=== PATIENT | female | born 1950 | race Caucasian/White ===

== ENCOUNTER 2016-12-11 12:08 | Emergency (ER) | payer MEDICARE, MEDICAID ==
[~2016-12-11] VITALS: Ht 157.5 cm; Wt 79.4 kg
[~2016-12-11 12:08] MED LIST: HYOS0.1273 PO; PANT40TA2 PO
[2016-12-11] MEDS ORDERED: OMEP20TA5 PO (12:19)
[2016-12-11 13:06] LABS: BILIRUBIN,DIRECT 0.1 mg/dL (0.0-0.2); BILIRUBIN,TOTAL 0.5 mg/dL (0.2-1.0); CREATININE 0.5 mg/dL (0.6-1.3); POTASSIUM 3.5 mmol/L (3.5-5.1)
[2016-12-11 13:09] LABS: BASOPHILS % (AUTO) 0.3 % (0.0-2.0); EOSINOPHILS # (AUTO) 0.1 K/uL (0.0-0.7); EOSINOPHILS % (AUTO) 0.5 % (0.0-7.0); HEMATOCRIT 41.5 % (31.2-41.9); HEMOGLOBIN 14.3 g/dL (10.9-14.3); LYMPHOCYTES # (AUTO) 1.3 K/uL (20.0-40.0); LYMPHOCYTES % (AUTO) 10.9 % (20.5-51.5); MEAN CORPUSCULAR HEMOGLOBIN 30.6 uug (24.7-32.8); MEAN CORPUSCULAR HGB CONC 34 g/dL (32.3-35.6); MEAN CORPUSCULAR VOLUME 88.9 fL (75.5-95.3); MONOCYTES # (AUTO) 0.7 K/uL (2.0-10.0); MONOCYTES % (AUTO) 5.7 % (0.0-11.0); NEUTROPHILS # (AUTO) 10.1 K/uL (1.8-8.9); NEUTROPHILS % (AUTO) 82.6 % (38.5-71.5); PLATELET COUNT (AUTO) 191 K/uL (179-408); RED BLOOD CELL COUNT(AUTO) 4.67 MIL/uL (3.63-4.92); WHITE BLOOD COUNT (AUTO) 12.2 K/uL (3.8-11.8)
[2016-12-11 13:21] LABS: *BILIRUBIN,URIN NEGATIVE (NEGATIVE); *BLOOD, URINE Trace-lysed (NEGATIVE); *CLARITY,URINE CLEAR (CLEAR); *COLOR,URINE YELLOW (YELLOW); *KETONES,URINE NEGATIVE (NEGATIVE); *PROTEIN,URINE NEGATIVE (NEGATIVE); *UROBILINOGEN,URINE 0.2 E.U./dl (NORMAL); LEUKOCYTE ESTERASE ,URINE TRACE (NEGATIVE); NITRITE, URINE NEGATIVE (NEGATIVE); PH,URINE 5.5 (5.0-8.0); UGLUCOSE NEGATIVE (NEGATIVE)
--- NOTE | 2016-12-11 13:29 | NUR ---
Patient is resting comfortably in bed with eyes closed, some relief expressed, pending results & disposition
[2016-12-11 13:49] LABS: BACTERIA,URINE NONE SEEN /HPF (NONE SEEN); MUCUS,URINE FEW /LPF (0-FEW); RBC,URINE 0-3 /HPF (0-3); SQUAMOUS EPITHELIAL CELL,UR FEW /HPF (NONE SEEN)
[2016-12-11 15:07] VITALS: BP 133/77
--- NOTE | 2016-12-11 15:08 | NUR ---
Patient discharged to home in stable conditon. Written and verbal after care instructions given. Patient and son verbalizes understanding of instructions.
== END 2016-12-11 15:09 | disposition home or self-care (01) ==
LOC: ER 12:08
DX: K85.90 Acute pancreatitis without necrosis or infection, unspecified (principal); Z90.49 Acquired absence of other specified parts of digestive tract; I10 Essential (primary) hypertension; Z90.710 Acquired absence of both cervix and uterus
CPT/HCPCS: 36415; 71010; 74176; 80048; 80076; 81001; 83690; 85025; 85730; 87086; 93005; 96361; 96374; 96375; 99285; A4663; C9113; J1170; J2405; J7030

== ENCOUNTER 2016-12-17 11:32 | Inpatient (IN) | payer MEDICARE, MEDICAID ==
[~2016-12-17] VITALS: Ht 157.5 cm; Wt 77.1 kg
[~2016-12-17 11:32] MED LIST changes: +OMEP20TA5 PO
[2016-12-17] MEDS ORDERED: METOCLOPRAMIDE HCL 10 MG/2 ML VIAL IV ONE (12:15)
[2016-12-17] MEDS ORDERED: KETOROLAC TROMETHAMINE 15 MG INJ IV ONE (12:15)
[2016-12-17] MEDS ORDERED: IV NORMAL SALINE 1000 ML BAG IV ONE (12:15)
[2016-12-17 12:20] LABS: BASOPHILS # (AUTO) 0.1 K/uL (0.0-8.0); BASOPHILS % (AUTO) 0.7 % (0.0-2.0); EOSINOPHILS # (AUTO) 0.1 K/uL (0.0-0.7); EOSINOPHILS % (AUTO) 0.9 % (0.0-7.0); HEMATOCRIT 43.8 % (31.2-41.9); LYMPHOCYTES # (AUTO) 1.7 K/uL (20.0-40.0); MEAN CORPUSCULAR HEMOGLOBIN 30.8 uug (24.7-32.8); MEAN CORPUSCULAR HGB CONC 34 g/dL (32.3-35.6); MEAN CORPUSCULAR VOLUME 89.7 fL (75.5-95.3); MONOCYTES # (AUTO) 0.4 K/uL (2.0-10.0); MONOCYTES % (AUTO) 5.5 % (0.0-11.0); NEUTROPHILS # (AUTO) 5.7 K/uL (1.8-8.9); NEUTROPHILS % (AUTO) 71.9 % (38.5-71.5); PLATELET COUNT (AUTO) 208 K/uL (179-408); RED BLOOD CELL COUNT(AUTO) 4.88 MIL/uL (3.63-4.92); WHITE BLOOD COUNT (AUTO) 7.9 K/uL (3.8-11.8)
[2016-12-17 12:21] LABS: *BILIRUBIN,URIN NEGATIVE (NEGATIVE); *BLOOD, URINE NEGATIVE (NEGATIVE); *CLARITY,URINE CLEAR (CLEAR); *COLOR,URINE YELLOW (YELLOW); *KETONES,URINE NEGATIVE (NEGATIVE); *PROTEIN,URINE NEGATIVE (NEGATIVE); *UROBILINOGEN,URINE 0.2 E.U./dl (NORMAL); LEUKOCYTE ESTERASE ,URINE TRACE (NEGATIVE); NITRITE, URINE NEGATIVE (NEGATIVE); UGLUCOSE NEGATIVE (NEGATIVE)
[2016-12-17 12:23] LABS: CREATININE 0.6 mg/dL (0.6-1.3)
[2016-12-17] MEDS ORDERED: KETOROLAC TROMETHAMINE 15 MG INJ ONE (12:27)
[2016-12-17 12:28] LABS: BACTERIA,URINE NONE SEEN /HPF (NONE SEEN); BILIRUBIN,DIRECT 0.1 mg/dL (0.0-0.2); BILIRUBIN,TOTAL 0.5 mg/dL (0.2-1.0); RBC,URINE 0-3 /HPF (0-3); SQUAMOUS EPITHELIAL CELL,UR FEW /HPF (NONE SEEN); TOTAL PROTEIN, SERUM 8.2 g/dL (6.4-8.2); WBC,URINE 0-3 /HPF (0-3)
[2016-12-17] MEDS ORDERED: METOCLOPRAMIDE HCL 10 MG/2 ML VIAL ONE (12:28)
--- NOTE | 2016-12-17 13:15 | NUR ---
Dr Miller at bedside for re-eval. Pt states pain and nausea improved. Call placed to [facility] for admission.
--- NOTE | 2016-12-17 14:00 | NUR ---
Dr. Miller spoke with via telephone, SBAR report given to Rashida.
--- NOTE | 2016-12-17 14:16 | NUR ---
Pt trans to m/s floor, NAD noted.
[2016-12-17 14:44] VITALS: BP 122/53
[2016-12-17] MEDS ORDERED: ACETAMINOPHEN 325 MG TABLET PO PRN (14:45)
[2016-12-17] MEDS ORDERED: HYDROMORPHONE 1 MG/1 ML DISP.SYRIN IV PRN (14:45)
[2016-12-17] MEDS ORDERED: Z GUARD REMEDY PASTE 57 GM TUBE TOP PRN (14:45)
[2016-12-17] MEDS ORDERED: ONDANSETRON 4 MG/2 ML VIAL IV PRN (14:45)
--- NOTE | 2016-12-17 14:45 | NUR ---
66 year old female admitted to room 218 for abdominal pain in stable condition.pt is axox3,daughter is at bed side,orient the pt to room and surroundings,call light with in reach
[2016-12-17] MEDS ORDERED: HYDROMORPHONE 2 MG/1 ML DISP.SYRIN IV PRN (15:00)
[2016-12-17] MEDS: IV NS 1000 ML 1,000 ML IV PRN (15:14)
[2016-12-17 20:00] VITALS: BP 141/63
[2016-12-18 04:27] VITALS: BP 129/53
[2016-12-18] MEDS: IV NS 1000 ML 1,000 ML IV PRN ×2 (05:24→18:14)
[2016-12-18 07:25] LABS: EOSINOPHILS # (AUTO) 0.1 K/uL (0.0-0.7); EOSINOPHILS % (AUTO) 1.4 % (0.0-7.0); HEMATOCRIT 39.3 % (37-47); HEMOGLOBIN 13.1 G/DL (12.0-16.0); LYMPHOCYTES # (AUTO) 1.1 K/UL (0.8-4.8); LYMPHOCYTES % (AUTO) 17.6 % (20.5-51.5); MEAN CORPUSCULAR HEMOGLOBIN 30.1 UUG (27.0-31.0); MEAN CORPUSCULAR HGB CONC 33 g/dL (32.0-37.0); MEAN CORPUSCULAR VOLUME 90.4 FL (81.0-99.0); MONOCYTES # (AUTO) 0.5 K/UL (0.1-1.30); NEUTROPHILS # (AUTO) 4.8 K/UL (1.8-8.9); PLATELET COUNT (AUTO) 190 K/UL (150-450); RED BLOOD CELL COUNT(AUTO) 4.35 MIL/UL (4.2-5.4); WHITE BLOOD COUNT (AUTO) 6.5 K/UL (4.0-11.2)
[2016-12-18] MEDS: PANTOPRAZOLE SODIUM 40 MG TABLET.DR PO SCH (07:37)
[2016-12-18 07:43] LABS: BILIRUBIN,TOTAL 0.6 mg/dL (0.2-1.0); CREATININE 0.6 mg/dL (0.6-1.3); MAGNESIUM 1.9 mg/dL (1.8-2.4); PHOSPHOROUS 2.7 mg/dL (2.5-4.9); POTASSIUM 3.8 mmol/L (3.5-5.1)
[2016-12-18 07:47] LABS: THYROID STIMULATING HORMONE 1.744 mIU/mL (0.358-3.740)
--- NOTE | 2016-12-18 08:30 | NUR ---
RECEIVED PATIENT AWAKE ALERT AND ORIENTED DENIES PAIN OR DISCOMFORTS AT THIS TIME.REMAIN ON IVF ORDERED TO HER LEFT ANTECUBITAL WITH NO S/S OF INFILTERATION AT THIS TIME MADE COMFORTABLE AND WILL CONTINUE TO OBSERVE PATIENT.
[2016-12-18] MEDS ORDERED: DICYCLOMINE HCL 20 MG TABLET PO PRN (10:45)
[2016-12-18 11:57] VITALS: BP 115/47
--- NOTE | 2016-12-18 12:00 | NUR ---
ORDER NOTED TO DISCHARGE PATIENT TODAY PATIENT STATED WANTS TO GO TO A REHAB BUT THE SANITATION INSPECTOR CALLED THE ASSISTANT EDUCATION DIRECTOR AND SHE STATED THAT WHEN EVER THE PATIENT IS SENT TO THE LONG TERM HE ALWAYS LEAVES AMA AND THEY ARE NOT WILLING TO TAKE HIM AT THIS TIME.PATIENT AWARE AND HE WAS OFFERED A PENITENTIARY BUT HE STATED HE DOES NOT WANT TO GO TO THE PENITENTIARY AT THIS TIME. Addendum: 12/18/16 at 1349 by BARBI MILLER RN ERROR IN CHARTING PATIENT IS NOT DISCHARGED WRONG PATIENT.
[2016-12-18] MEDS: CEPHALEXIN MONOHYDRATE 250 MG CAPSULE PO SCH ×2 (13:14→21:23)
[2016-12-18 16:00] VITALS: BP 118/60
[2016-12-18 20:00] VITALS: BP 137/66
--- NOTE | 2016-12-18 20:00 | NUR ---
Received pt on bed alert, awake and oriented x4, [place] speaking. Family at bedside during this time. No acute distress noted. No complaints of pain or discomfort. Breathing even and unlabored with normal respirations. IV on LAC intact and patent. Vital signs stable. Call light within reach. All needs attended. Will continue to monitor.
[2016-12-19 04:49] VITALS: BP 107/59
[2016-12-19] MEDS: CEPHALEXIN MONOHYDRATE 250 MG CAPSULE PO SCH ×3 (06:26→22:02)
[2016-12-19] MEDS: PANTOPRAZOLE SODIUM 40 MG TABLET.DR PO SCH (06:26)
--- NOTE | 2016-12-19 06:39 | NUR ---
Patient complained of abdominal pain, bentyl given as ordered. Verbalization of relief was noted. However, daughter requested to call the docror. Tried to call assistant branch operations manager MD, still awaiting for response. Call light within reach. All needs attended.
[2016-12-19] MEDS: IV NS 1000 ML 1,000 ML IV PRN ×2 (07:55→22:04)
--- NOTE | 2016-12-19 08:30 | NUR ---
PATIENT STATED THAT HER PAIN CAME BACK MORE TOLERABLE NOW SINCE SHE TOOK THE MEDICATIONS EARLIER THIS AM REMAIN ON IVF ORDERED EATING HER B/FAST BUT STATED THAT SHE CAN ONLY EAT A LITTLE DUE TO THE PAIN.
--- NOTE | 2016-12-19 11:13 | NUR ---
PATIENT SEEN AND EXAMINED BY DR JABIER JARQUIN SPOKE WITH PATIENTS DAUGHTER AT LENGTH WITH NEW ORDERS.DR JARQUIN STATED THAT HE ORDERED PHYSICIAN CONSULT WITH DR JORDAN FOR A POSSIBLE COLONOSCOPY TOMORROW PATIENT AND FAMILY EXPRESSED UNDERSTANDING.
[2016-12-19 11:25] VITALS: BP 130/55
[2016-12-19] MEDS: SERTRALINE HCL 50 MG TABLET PO SCH (12:03)
[2016-12-19] MEDS: FAMOTIDINE 20 MG TABLET PO SCH ×2 (12:03→20:16)
[2016-12-19] MEDS: DICYCLOMINE HCL 20 MG/2 ML AMPUL IM SCH ×2 (12:06→17:45)
[2016-12-19 12:16] LABS: BILIRUBIN,DIRECT 0.1 mg/dL (0.0-0.2); BILIRUBIN,TOTAL 0.4 mg/dL (0.2-1.0); TOTAL PROTEIN, SERUM 7.3 g/dL (6.4-8.2)
[2016-12-19] MEDS ORDERED: GOLYTELY 4000 ML BOTTLE PO ONE (14:45)
[2016-12-19] MEDS ORDERED: BISACODYL 5 MG TABLET.DR PO ONE (14:45)
--- NOTE | 2016-12-19 15:02 | NUR ---
DR JORDAN HERE TO SEE PATIENT WITH NEW ORDERS PATIENT IS FOR EGD/COLONOSCOPY TOMORROW FAMILY AND PATIENT AWARE AND WILL OBTAIN CONSCENT.
[2016-12-19 15:53] VITALS: BP 121/76
--- NOTE | 2016-12-19 16:50 | NUR ---
PATIENT COMPLAINED OF NAUSEA MEDICATED WITH ZOFRAN ORDERED SHE IS STILL DRINKING THE GOLYTELY.
--- NOTE | 2016-12-19 18:21 | NUR ---
STILL CONTINUING TO DRINK THE PREP MOTED LIQUIDS STOOL BUT STILL WITH SEDIMENTS.
--- NOTE | 2016-12-19 19:30 | NUR ---
RECEIVED PATIENT FROM PREVIOUS SHIFT. PATIENT IN STABLE CONDITION, NO SIGNS OF DISTRESS. VITAL SIGNS WNL. PATIENT COMPLAINING OF ABD PAIN BUT DOES NOT WANT PAIN MEDICATION. NO FALL RISK. IV ACCESS NOTED, PATENT, INTACT. O2 NOT NEEDED. BED IN LOCKED POSITION. CALL-LIGHT WITHIN REACH. SAFETY AND COMFORT PROVIDED.
--- NOTE | 2016-12-19 20:00 | NUR ---
EDUCATED TO PATIENT AND THE IMPORTANCE OF DRINKING GO-LIGHTLY. VERBALIZED TO PATIENT AND ABOUT THE IMPORTANCE OF CLEAR LIQUID DIET, AND NPO STATUS AFTER 0700 ON 12/20/16 FOR EGD. PATIENT AND VERBALIZED THE IMPORTANCE.
[2016-12-19 20:03] VITALS: BP 136/60
[2016-12-20] VITALS (7 sets, daily range): BP systolic 115–138; BP diastolic 47–76
[2016-12-20] MEDS: DICYCLOMINE HCL 20 MG/2 ML AMPUL IM SCH ×3 (00:21→12:00)
--- NOTE | 2016-12-20 02:00 | NUR ---
PATIENT VERBALIZED THAT SHE FEELS RESTLESS AND FEELS HERSELF SHIVERING. PATIENT'S VITAL SIGNS TAKEN AND WNL. PATIENT IN STABLE CONDITION. NO SIGNS OF DISTRESS. WILL CONTINUE TO MONITOR.
--- NOTE | 2016-12-20 05:00 | NUR ---
ENEMA NOT GIVEN TO PATIENT BECAUSE NO PARTICLES WITNESSED IN LAST BOWEL MOVEMENT.
[2016-12-20] MEDS: PANTOPRAZOLE SODIUM 40 MG TABLET.DR PO SCH (05:58)
[2016-12-20] MEDS: CEPHALEXIN MONOHYDRATE 250 MG CAPSULE PO SCH ×3 (05:58→21:01)
[2016-12-20 06:50] LABS: BASOPHILS % (AUTO) 0.3 % (0.0-2.0); EOSINOPHILS % (AUTO) 0.5 % (0.0-7.0); HEMATOCRIT 37.8 % (37-47); HEMOGLOBIN 12.7 G/DL (12.0-16.0); LYMPHOCYTES # (AUTO) 1.3 K/UL (0.8-4.8); LYMPHOCYTES % (AUTO) 22.6 % (20.5-51.5); MEAN CORPUSCULAR HGB CONC 34 g/dL (32.0-37.0); MEAN CORPUSCULAR VOLUME 89.4 FL (81.0-99.0); MONOCYTES # (AUTO) 0.4 K/UL (0.1-1.30); MONOCYTES % (AUTO) 7.3 % (0.0-11.0); NEUTROPHILS # (AUTO) 3.9 K/UL (1.8-8.9); NEUTROPHILS % (AUTO) 69.3 % (38.5-71.5); PLATELET COUNT (AUTO) 206 K/UL (150-450); RED BLOOD CELL COUNT(AUTO) 4.23 MIL/UL (4.2-5.4); WHITE BLOOD COUNT (AUTO) 5.6 K/UL (4.0-11.2)
[2016-12-20 08:13] LABS: BILIRUBIN,TOTAL 0.4 mg/dL (0.2-1.0); CREATININE 0.5 mg/dL (0.6-1.3); MAGNESIUM 1.8 mg/dL (1.8-2.4); PHOSPHOROUS 2.8 mg/dL (2.5-4.9); POTASSIUM 3.4 mmol/L (3.5-5.1); TOTAL PROTEIN, SERUM 6.9 g/dL (6.4-8.2)
[2016-12-20] MEDS: FAMOTIDINE 20 MG TABLET PO SCH ×2 (08:21→21:01)
[2016-12-20] MEDS: SERTRALINE HCL 50 MG TABLET PO SCH (08:21)
--- NOTE | 2016-12-20 08:30 | NUR ---
PATIENT IS FOR EGD/COLONOSCOPY TODAY AND SHE IS CURRENTLY NPO AND HER DUE MEDICATIONS WAS GIVEN WITH A SIP OF WATER PATIENT EDUCATED WITH HER PRESENT AND SHE EXPRESSED UNDERSTANDING.
[2016-12-20] MEDS ORDERED: POTASSIUM CHLORIDE 20 MEQ POWDER PACKET PO ONE (11:45)
[2016-12-20] MEDS: IV NS 1000 ML 1,000 ML IV PRN ×2 (12:37→18:18)
--- NOTE | 2016-12-20 12:40 | NUR ---
POTASSIUM LEVEL IS 3.4 WITH NEW ORDERS PATIENT IS NPO FOR EGD/COLONOSCOPY WILL ADMINISTER AFTER THE PROCEDURE.
--- NOTE | 2016-12-20 13:30 | NUR ---
PATIENT PICKED UP BY BED TO GI LAB FOR EGD/COLONOSCOPY ORDERED.REMAINS NPO ORDERED .
--- NOTE | 2016-12-20 15:15 | NUR ---
PATIENT RETURNED FROM GI LAB BY BED AWAKE ALERT AND ORIENTED DENIES PAIN OR DISCOMFORTS STATED THAT SHE FEELS GASSY AND BURPING.ABLE TO TOLERATE JUICE ICE AND JELLO MADE COMFORTABLE AND WILL CONTINUE TO OBSERVE.
[2016-12-20] MEDS: CLIDINIUM BR/CHLORDIAZEPOXIDE CAPSULE PO SCH ×2 (17:10→21:01)
[2016-12-20] MEDS: LIPASE/PROTEASE/AMYLASE 4200 UNITS CAPSULE.DR PO SCH (17:10)
[2016-12-20] MEDS ORDERED: DICYCLOMINE HCL 20 MG TABLET PO SCH (18:00)
[2016-12-20] MEDS ORDERED: CREON PO SCH (18:00)
--- NOTE | 2016-12-20 18:00 | NUR ---
TOLERATED SOFT DIET FAIR AMOUNT WITH NO NAUSEA OR VOMITING AT THIS TIME.REMAIN ON IVF ORDERED AND WILL CONTINUE TO OBSERVE.
--- NOTE | 2016-12-20 19:30 | NUR ---
RECEIVED SHIFT REPORT FROM PREVIOUS SHIFT'S NURSE. PATIENT IN STABLE CONDITION. NO SIGNS OF DISTRESS. SAFETY AND COMFORT PROVIDED TO PATIENT.
[2016-12-20] MEDS ORDERED: EPHEDRINE SULFATE 50 MG/ML AMPUL MC ONE (20:39)
[2016-12-20] MEDS ORDERED: PROPOFOL 200 MG/20 ML BOTTLE IV ONE (20:39)
[2016-12-20] MEDS ORDERED: LIDOCAINE HCL 1% 20 ML VIAL MC ONE (20:39)
[2016-12-21] MEDS: PANTOPRAZOLE SODIUM 40 MG TABLET.DR PO SCH (05:26)
[2016-12-21] MEDS: CEPHALEXIN MONOHYDRATE 250 MG CAPSULE PO SCH ×2 (05:26→13:39)
[2016-12-21 06:32] LABS: BASOPHILS % (AUTO) 0.6 % (0.0-2.0); EOSINOPHILS # (AUTO) 0.1 K/uL (0.0-0.7); EOSINOPHILS % (AUTO) 2.1 % (0.0-7.0); HEMATOCRIT 38.3 % (37-47); HEMOGLOBIN 12.8 G/DL (12.0-16.0); LYMPHOCYTES # (AUTO) 1.3 K/UL (0.8-4.8); LYMPHOCYTES % (AUTO) 28.5 % (20.5-51.5); MEAN CORPUSCULAR HEMOGLOBIN 30.2 UUG (27.0-31.0); MEAN CORPUSCULAR HGB CONC 33 g/dL (32.0-37.0); MEAN CORPUSCULAR VOLUME 90.7 FL (81.0-99.0); MONOCYTES # (AUTO) 0.4 K/UL (0.1-1.30); MONOCYTES % (AUTO) 8.3 % (0.0-11.0); NEUTROPHILS # (AUTO) 2.8 K/UL (1.8-8.9); NEUTROPHILS % (AUTO) 60.5 % (38.5-71.5); PLATELET COUNT (AUTO) 195 K/UL (150-450); RED BLOOD CELL COUNT(AUTO) 4.22 MIL/UL (4.2-5.4); WHITE BLOOD COUNT (AUTO) 4.6 K/UL (4.0-11.2)
[2016-12-21 06:43] VITALS: BP 125/48
[2016-12-21 06:46] LABS: CREATININE 0.5 mg/dL (0.6-1.3); MAGNESIUM 1.8 mg/dL (1.8-2.4); PHOSPHOROUS 2.8 mg/dL (2.5-4.9); POTASSIUM 3.7 mmol/L (3.5-5.1)
[2016-12-21] MEDS: CLIDINIUM BR/CHLORDIAZEPOXIDE CAPSULE PO SCH ×3 (07:53→16:41)
[2016-12-21] MEDS: IV NS 1000 ML 1,000 ML IV PRN (07:54)
[2016-12-21] MEDS: LIPASE/PROTEASE/AMYLASE 4200 UNITS CAPSULE.DR PO SCH ×3 (08:10→17:31)
[2016-12-21] MEDS: SERTRALINE HCL 50 MG TABLET PO SCH (08:11)
[2016-12-21] MEDS: FAMOTIDINE 20 MG TABLET PO SCH (08:11)
--- NOTE | 2016-12-21 09:00 | NUR ---
PATIENT IS ALERT AND ORIENTED WITH SOME ROMANIAN MOSTLY [place] DENIES PAIN OR DISCOMFORTS AT THIS TIME.CONTINUE TO TOLERATE MEDICATIONS ORDERED.IV FLUIDS REMAIN IN PROGRESS TO HER LEFT ANTECUBITAL WITH NO REDNESS MADE COMFORTABLE WITH NO DISTRESS AT THIS TIME.
[2016-12-21 12:00] VITALS: BP 101/56
--- NOTE | 2016-12-21 14:26 | NUR ---
PATIENT SEEN AND EXAMINED BY DR ERICKSON WITH DISCHARGE PLANNING THIS EVENING.DR ERICKSON SPOKE WITH THE PATIENTS DAUGHTER BRAYDEN AT LENGTH REGARDING PATIENTS PRESENT CONDITION ,PLAN OF CARE AND DISCHARGE PLANNING AND SHE EXPRESSED UNDERSTANDING.
[2016-12-21 15:51] VITALS: BP 119/49
[2016-12-21] MEDS ORDERED: SERT50TA12 PO (16:03)
--- NOTE | 2016-12-21 17:50 | NUR ---
PATIENT DISCHARGED PICKED UP BY HER DAUGHTER IN SATISFACTORY CONDITION WITH DISCHARGE INSTRUCTIONS AND I CALLED THE [facility] AND CONFIRMED THAT THE PATIENTS MEDICATION THAT WAS SENT ELECTRONICALLY BY DR ERICKSON WAS RECEIVED SPOKE WITH CLAIR AT THE PHARMACY AND SHE STATED THAT THE MEDICATION WILL BE READY FOR PATIENT TO EDITOR.[facility] WAS NOTIFIED OF PATIENTS DISCHARGE.HEP LOCK AND ID BAND REMOVED AND PATIENT TAKEN DOWN BY W/CHAIR TO HER DAUGHTERS CAR WITH ALL HER PERSONA; BELONGINGS.
== END 2016-12-21 17:50 | disposition home or self-care (01) | DRG 395 ==
LOC: ER 11:35 → MED 14:11
PROVIDERS: ADMIT Nurse Practitioner Acute Care; ATTEND Nurse Practitioner Acute Care
PROC: 0DB68ZX Excision of Stomach, Via Natural or Artificial Opening Endoscopic, Diagnostic (ICD-10-PCS; principal; 2016-12-20 14:14)
PROC: 0DJD8ZZ Inspection of Lower Intestinal Tract, Via Natural or Artificial Opening Endoscopic (ICD-10-PCS; 2016-12-20 14:14)
DX: K66.0 Peritoneal adhesions (postprocedural) (postinfection) (principal); K76.0 Fatty (change of) liver, not elsewhere classified; I10 Essential (primary) hypertension; F32.9 Major depressive disorder, single episode, unspecified; R74.0 Nonspecific elevation of levels of transaminase and lactic acid dehydrogenase [LDH]; E66.9 Obesity, unspecified; E87.6 Hypokalemia; G89.29 Other chronic pain; K31.7 Polyp of stomach and duodenum; K44.9 Diaphragmatic hernia without obstruction or gangrene; Z90.710 Acquired absence of both cervix and uterus; Z90.49 Acquired absence of other specified parts of digestive tract; K57.30 Diverticulosis of large intestine without perforation or abscess without bleeding; K64.8 Other hemorrhoids; K29.70 Gastritis, unspecified, without bleeding; Z68.31 Body mass index [BMI] 31.0-31.9, adult
CPT/HCPCS: 36415; 43235; 70030-TC; 71010; 74020; 83605; 83690; 83735; 84100; 84443; 85025; 87040; 87086; 93005; A4217; A4663; J0500; J1170; J1885; J2405; J2765; J3490; J7030

== ENCOUNTER 2017-03-07 10:10 | Emergency (ER) | payer MEDICARE, MEDICAID ==
[~2017-03-07] VITALS: Ht 152.4 cm; Wt 78.0 kg
[~2017-03-07 10:10] MED LIST changes: -PANT40TA2 PO; +SERT50TA12 PO
[2017-03-07] MEDS ORDERED: ACETAMINOPHEN ES 500 MG TABLET PO ONE (11:15)
[2017-03-07] MEDS ORDERED: ACETAMINOPHEN ES 500 MG TABLET ONE (11:36)
--- NOTE | 2017-03-07 12:29 | NUR ---
Patient discharged to home in stable conditon with family. Written and verbal after care instructions given. Patient verbalizes understanding of instructions. Stressed follow up with pmd.
== END 2017-03-07 12:31 | disposition home or self-care (01) ==
LOC: ER 10:10
DX: J20.8 Acute bronchitis due to other specified organisms (principal); B96.89 Other specified bacterial agents as the cause of diseases classified elsewhere; I10 Essential (primary) hypertension; R51 Headache; Z88.5 Allergy status to narcotic agent; Z90.49 Acquired absence of other specified parts of digestive tract
CPT/HCPCS: 87400; A4663

== ENCOUNTER 2017-08-03 11:57 | Emergency (ER) | payer MEDICARE, MEDICAID ==
[~2017-08-03] VITALS: Ht 154.9 cm; Wt 77.1 kg
--- NOTE | 2017-08-03 12:17 | NUR ---
MD is at bedside evaluating the patient.
[2017-08-03] MEDS ORDERED: DICYCLOMINE HCL 10 MG/5 ML UDC LIQ PO ONE (12:30)
[2017-08-03] MEDS ORDERED: MAG HYDROX/AL HYDROX/SIMETH 30 ML LIQUID UDC PO ONE (12:30)
[2017-08-03] MEDS ORDERED: DICYCLOMINE HCL 10 MG/5 ML UDC LIQ ONE (12:32)
[2017-08-03] MEDS ORDERED: MAG HYDROX/AL HYDROX/SIMETH 30 ML LIQUID UDC ONE (12:32)
[2017-08-03] MEDS ORDERED: ACETAMINOPHEN ES 500 MG TABLET ONE (12:49)
[2017-08-03] MEDS ORDERED: ACETAMINOPHEN 325 MG TABLET PO ONE (13:00)
--- NOTE | 2017-08-03 13:16 | NUR ---
IV removed. Catheter intact and site benign. Pressure and 4x4 gauze applied to site. No bleeding noted. Patient discharged to home in stable conditon & steady gait. Written and verbal after care instructions given to patient and family. Patient and family verbalized understanding of instructions.
== END 2017-08-03 13:19 | disposition home or self-care (01) ==
LOC: ER 11:57
DX: K21.0 Gastro-esophageal reflux disease with esophagitis (principal); I10 Essential (primary) hypertension; K85.90 Acute pancreatitis without necrosis or infection, unspecified; Z88.5 Allergy status to narcotic agent; Z90.49 Acquired absence of other specified parts of digestive tract
CPT/HCPCS: 36415; 86403; 87070; 93005; A4663; A9150

== ENCOUNTER 2017-12-24 14:46 | Emergency (ER) | payer MEDICARE, MEDICAID ==
[~2017-12-24] VITALS: Ht 157.5 cm; Wt 78.0 kg
[2017-12-24] MEDS ORDERED: DICY10CA13 PO (14:55)
--- NOTE | 2017-12-24 15:01 | NUR ---
PT IS IN ROOM #2B. DR MAE EVALUATED THE PT.
[2017-12-24 15:16] LABS: BASOPHILS # (AUTO) 0.1 K/uL (0.0-8.0); BASOPHILS % (AUTO) 0.9 % (0.0-2.0); EOSINOPHILS % (AUTO) 0.3 % (0.0-7.0); HEMOGLOBIN 14.6 g/dL (10.9-14.3); LYMPHOCYTES # (AUTO) 1.5 K/uL (20.0-40.0); LYMPHOCYTES % (AUTO) 22.6 % (20.5-51.5); MEAN CORPUSCULAR HEMOGLOBIN 31.7 uug (24.7-32.8); MEAN CORPUSCULAR HGB CONC 35 g/dL (32.3-35.6); MEAN CORPUSCULAR VOLUME 91.5 fL (75.5-95.3); MONOCYTES # (AUTO) 0.4 K/uL (2.0-10.0); MONOCYTES % (AUTO) 5.5 % (0.0-11.0); NEUTROPHILS # (AUTO) 4.8 K/uL (1.8-8.9); NEUTROPHILS % (AUTO) 70.7 % (38.5-71.5); PLATELET COUNT (AUTO) 212 K/uL (179-408); RED BLOOD CELL COUNT(AUTO) 4.59 MIL/uL (3.63-4.92); WHITE BLOOD COUNT (AUTO) 6.8 K/uL (3.8-11.8)
[2017-12-24 15:23] LABS: CREATININE 0.7 mg/dL (0.6-1.3); POTASSIUM 3.6 mmol/L (3.5-5.1)
[2017-12-24 15:29] LABS: BILIRUBIN,DIRECT 0.1 mg/dL (0.0-0.2); BILIRUBIN,TOTAL 0.4 mg/dL (0.2-1.0); TOTAL PROTEIN, SERUM 7.8 g/dL (6.4-8.2)
[2017-12-24 18:16] LABS: HEMATOCRIT 41.5 % (31.2-41.9); HEMOGLOBIN 14.2 g/dL (10.9-14.3)
--- NOTE | 2017-12-24 18:28 | NUR ---
PT WAS D/C TO HOME. D/C INSTRUCTIONS GIVEN TO THE PT.
[2017-12-24 18:30] VITALS: BP 139/81
== END 2017-12-24 18:31 | disposition home or self-care (01) ==
LOC: ER 14:48
DX: R10.84 Generalized abdominal pain (principal); K62.5 Hemorrhage of anus and rectum; I10 Essential (primary) hypertension; Z88.5 Allergy status to narcotic agent; Z90.710 Acquired absence of both cervix and uterus; Z90.49 Acquired absence of other specified parts of digestive tract
CPT/HCPCS: 36415; 83690; 85018; 85025; 85730; 86850; 86900; 86901; A4663

== ENCOUNTER 2020-07-17 17:10 | Emergency (ER) | payer MEDICARE, OTHER ==
[~2020-07-17] VITALS: Ht 160 cm; Wt 76.7 kg
[~2020-07-17 17:10] MED LIST changes: +AMOX-430 PO; +ASPI81TA31 PO; +DICY20TA11 PO; +DOCU-141 PO; +FAMO20TA8 PO; -HYOS0.1273 PO; +LOSA25TA27 PO; -SERT50TA12 PO
[2020-07-17] MEDS ORDERED: ONDANSETRON 4 MG/2 ML VIAL IV ONE (18:00)
[2020-07-17] MEDS ORDERED: FENTANYL CITRATE 100 MCG/2 ML AMPUL IV ONE (18:00)
[2020-07-17] MEDS ORDERED: FENTANYL CITRATE 100 MCG/2 ML AMPUL ONE (18:23)
[2020-07-17] MEDS ORDERED: ONDANSETRON 4 MG/2 ML VIAL ONE (18:23)
[2020-07-17 18:24] LABS: BASOPHILS % (AUTO) 0.6 % (0.0-2.0); CREATININE 0.7 mg/dL (0.6-1.3); EOSINOPHILS % (AUTO) 0.6 % (0.0-7.0); HEMATOCRIT 39.7 % (31.2-41.9); HEMOGLOBIN 13.3 g/dL (10.9-14.3); LYMPHOCYTES # (AUTO) 1.4 K/uL (20.0-40.0); LYMPHOCYTES % (AUTO) 19.4 % (20.5-51.5); MEAN CORPUSCULAR HEMOGLOBIN 30.3 uug (24.7-32.8); MEAN CORPUSCULAR HGB CONC 34 g/dL (32.3-35.6); MEAN CORPUSCULAR VOLUME 90.2 fL (75.5-95.3); MONOCYTES # (AUTO) 0.5 K/uL (2.0-10.0); MONOCYTES % (AUTO) 6.6 % (0.0-11.0); NEUTROPHILS # (AUTO) 5.3 K/uL (1.8-8.9); NEUTROPHILS % (AUTO) 72.8 % (38.5-71.5); PLATELET COUNT (AUTO) 216 K/uL (179-408); POTASSIUM 4.1 mmol/L (3.5-5.1); WHITE BLOOD COUNT (AUTO) 7.3 K/uL (3.8-11.8)
[2020-07-17 18:30] LABS: BILIRUBIN,DIRECT 0.1 mg/dL (0.0-0.2); BILIRUBIN,TOTAL 0.4 mg/dL (0.2-1.0); TOTAL PROTEIN, SERUM 7.5 g/dL (6.4-8.2)
--- NOTE | 2020-07-17 18:59 | NUR ---
PATIENT HERE WITH HER DAUGHTER FOR C/O ABDOMINAL PAIN. SHE WAS SEEN HERE UESTEDAY BUT FEELS PAIN IS WORSE TODAY. PLACED ON A MONITOR. IV PLACED BY OTHER RN. MEDS GIVEN ORDERED. STATES PAIN HAS DIMINISHED ONLY SLIGHTLY. DAUGHTER AT BEDSIDE.
--- NOTE | 2020-07-17 19:01 | NUR ---
HAND OFF REPORT GIVEN TO UMA MONTGOMERY
--- NOTE | 2020-07-17 19:24 | NUR ---
Patient's daughter returned to room and is discussing with SIA regarding patient admission.
[2020-07-17] MEDS ORDERED: GABAPENTIN 300 MG CAPSULE PO ONE (20:00)
[2020-07-17] MEDS ORDERED: GABAPENTIN 100 MG CAPSULE ONE (20:02)
[2020-07-17] MEDS ORDERED: GABA100C PO ×2 (20:18→20:21)
[2020-07-17] MEDS ORDERED: TRAM50TA2 PO ×2 (20:18→20:21)
--- NOTE | 2020-07-17 20:33 | NUR ---
Patient discharged to home in stable condition. Written and verbal after care instructions given. Patient verbalizes understanding of instructions. Stressed follow up or return to ER for worsening s/s. IV removed. Catheter intact and site benign. Pressure and 4x4 gauze applied to site. No bleeding noted. Patient ambulated with steady gait. Patient accompanied by daughter.
[2020-07-17 20:36] VITALS: BP 118/73
== END 2020-07-17 20:36 | disposition home or self-care (01) ==
LOC: ER 17:21
DX: R10.9 Unspecified abdominal pain (principal); G89.29 Other chronic pain; K57.30 Diverticulosis of large intestine without perforation or abscess without bleeding; Z90.49 Acquired absence of other specified parts of digestive tract; Z90.710 Acquired absence of both cervix and uterus; Z82.49 Family history of ischemic heart disease and other diseases of the circulatory system; R11.0 Nausea; Z79.82 Long term (current) use of aspirin; Z79.899 Other long term (current) drug therapy; Z87.19 Personal history of other diseases of the digestive system; I10 Essential (primary) hypertension
CPT/HCPCS: 36415; 74176; 80048; 80076; 83605; 83690; 85025; 96374; 96375; 99284; J2405; J3010; A4663

== ENCOUNTER 2022-02-06 21:53 | Inpatient (IN) | payer MEDICARE, OTHER ==
[~2022-02-06] VITALS: Ht 175.3 cm; Wt 78.9 kg
[~2022-02-06 21:53] MED LIST changes: +GABA100C PO; +TRAM50TA2 PO
[2022-02-06 23:07] LABS: HEMATOCRIT 40.2 % (31.2-41.9); MEAN CORPUSCULAR HEMOGLOBIN 29.8 uug (24.7-32.8); MEAN CORPUSCULAR VOLUME 90.5 fL (75.5-95.3); PLATELET COUNT (AUTO) 215 K/uL (179-408)
[2022-02-06 23:13] LABS: CARBON DIOXIDE 29 mmol/L (21-32); CHLORIDE 104 mmol/L (98-107); CREATININE 0.9 mg/dL (0.6-1.3); GLUCOSE 109 mg/dL (74-106); POTASSIUM 3.7 mmol/L (3.5-5.1); UREA NITROGEN, BLOOD 18 mg/dL (7-18)
[2022-02-06 23:36] LABS: ALANINE AMINOTRANSFERASE 15 U/L (14-59); ALKALINE PHOSPHATASE 112 U/L (50-136); ASPARTATE AMINOTRANSFERASE 17 U/L (15-37); BILIRUBIN,DIRECT 0.1 mg/dL (0.0-0.2); BILIRUBIN,TOTAL 0.3 mg/dL (0.2-1.0); TOTAL PROTEIN, SERUM 8.2 g/dL (6.4-8.2)
--- NOTE | 2022-02-07 00:07 | NUR ---
Pt. in bed, AAOx4, speaks welsh only, dtr at bedside.
[2022-02-07] MEDS ORDERED: ASPIRIN 81 MG TAB.CHEW ONE (01:35)
[2022-02-07] MEDS ORDERED: MAGNESIUM HYDROXIDE 30 ML LIQUID UDC PO PRN (01:45)
[2022-02-07] MEDS ORDERED: LORAZEPAM 0.5 MG TABLET PO PRN (01:45)
[2022-02-07] MEDS ORDERED: GABAPENTIN 100 MG CAPSULE PO PRN ×2 (01:45→05:30)
[2022-02-07] MEDS ORDERED: NITROGLYCERIN 0.4 MG/TAB BOTTLE SL ONE (01:45)
[2022-02-07] MEDS ORDERED: REMEDY ESSENTIAL ZINC PASTE 113 GM TP PRN (01:45)
[2022-02-07] MEDS ORDERED: MORPHINE SULFATE 2 MG/1 ML DISP.SYRIN IV PRN ×2 (01:45→05:30)
[2022-02-07] MEDS ORDERED: ONDANSETRON 4 MG/2 ML VIAL IV PRN (01:45)
[2022-02-07] MEDS ORDERED: ACETAMINOPHEN 325 MG TABLET PO PRN (01:45)
[2022-02-07] MEDS ORDERED: TRAMADOL HCL 50 MG TABLET PO PRN (01:45)
--- NOTE | 2022-02-07 01:53 | NUR ---
Endorsed to VALENTINA Cunha to RM 311 MS.
[2022-02-07 02:00] VITALS: BP 133/57
[2022-02-07] MEDS ORDERED: METO-356 PO (02:15)
[2022-02-07] MEDS ORDERED: OMEP40CA21 PO (02:15)
--- NOTE | 2022-02-07 03:02 | NUR ---
RECEIVED REPORT FROM ER NURSE KALE RN, CHIEF COMPLAINT WAS ANXIETY/PANICK ATTACK, DX CHEST PAIN. PATIENT DENIES PAIN AT THIS TIME. PATIENT TRANSPORTED VIA GURNEY FROM ER TO ROOM 311, COMPLETE ASSESSMENT COMPLETED.
[2022-02-07 03:05] VITALS: BP 133/57
[2022-02-07 04:51] VITALS: BP 111/48
[2022-02-07 06:02] LABS: HEMATOCRIT 36.7 % (31.2-41.9); MEAN CORPUSCULAR HEMOGLOBIN 30.9 uug (24.7-32.8); MEAN CORPUSCULAR VOLUME 90.1 fL (75.5-95.3); PLATELET COUNT (AUTO) 188 K/uL (179-408)
[2022-02-07 06:19] LABS: CREATININE 0.7 mg/dL (0.6-1.3); MAGNESIUM 1.9 mg/dL (1.8-2.4); PHOSPHOROUS 3.5 mg/dL (2.5-4.9); POTASSIUM 3.5 mmol/L (3.5-5.1)
[2022-02-07] MEDS: PANTOPRAZOLE SODIUM 40 MG TABLET.DR PO SCH (06:20)
[2022-02-07] MEDS: ASPIRIN 81 MG TAB.CHEW PO SCH (08:43)
[2022-02-07] MEDS ORDERED: LOSARTAN POTASSIUM 25 MG TABLET PO SCH ×2 (09:00)
[2022-02-07 12:00] VITALS: BP 121/56
[2022-02-07] MEDS ORDERED: METO25TA6 PO (14:01)
[2022-02-07 16:00] VITALS: BP 138/62
[2022-02-07] MEDS ORDERED: METOPROLOL TARTRATE 25 MG TABLET PO SCH (18:00)
[2022-02-07 20:00] VITALS: BP 118/47
[2022-02-07] MEDS ORDERED: ATORVASTATIN 10 MG TABLET PO SCH (21:00)
[2022-02-07 21:32] LABS: *BILIRUBIN,URIN NEGATIVE (NEGATIVE); *CLARITY,URINE CLEAR (CLEAR); *COLOR,URINE YELLOW (YELLOW); *KETONES,URINE NEGATIVE (NEGATIVE); *UROBILINOGEN,URINE 0.2 E.U./dl (NORMAL); LEUKOCYTE ESTERASE ,URINE 1+ (NEGATIVE); NITRITE, URINE NEGATIVE (NEGATIVE); PH,URINE 5.5 (5.0-8.0); UGLUCOSE NEGATIVE (NEGATIVE)
[2022-02-07 21:33] LABS: *BLOOD, URINE TRACE (NEGATIVE)
[2022-02-07 22:29] LABS: BACTERIA,URINE FEW /HPF (NONE SEEN); RBC,URINE 0-3 /HPF (0-3)
[2022-02-07 22:30] LABS: SQUAMOUS EPITHELIAL CELL,UR FEW /HPF (NONE SEEN)
[2022-02-08] VITALS: BP 122/53
[2022-02-08 04:00] VITALS: BP 106/43
[2022-02-08 06:30] LABS: HEMATOCRIT 37.1 % (31.2-41.9); MEAN CORPUSCULAR HEMOGLOBIN 30.8 uug (24.7-32.8); PLATELET COUNT (AUTO) 183 K/uL (179-408)
[2022-02-08] MEDS: PANTOPRAZOLE SODIUM 40 MG TABLET.DR PO SCH (06:33)
--- NOTE | 2022-02-08 06:48 | NUR ---
Patient slept intermittently, no acute distress noted, no SOB. On RA saturating 96-99%. Sinus rhythm on tele. No complain of chest pain.
[2022-02-08 06:59] LABS: CREATININE 0.8 mg/dL (0.6-1.3); MAGNESIUM 1.9 mg/dL (1.8-2.4); PHOSPHOROUS 3.6 mg/dL (2.5-4.9); POTASSIUM 3.8 mmol/L (3.5-5.1)
[2022-02-08] MEDS: ASPIRIN 81 MG TAB.CHEW PO SCH (08:12)
[2022-02-08 12:00] VITALS: BP 133/51
[2022-02-08] MEDS ORDERED: CEFTRIAXONE 1 G in IV DEXTROSE 5% 50 ML IV SCH (14:00)
[2022-02-08] MEDS ORDERED: ATOR20TA PO (15:17)
--- NOTE | 2022-02-08 15:50 | NUR ---
dc orders received noted and carried out dc heplock per md orders.dc instruction and education given to the pt and her daughter.pt left the facility via private car in stable condition
== END 2022-02-08 15:54 | disposition home health service (06) | DRG 303 ==
LOC: ER 21:53 → TELE3 02-07 01:45
PROVIDERS: ADMIT Nurse Practitioner Acute Care; ATTEND Nurse Practitioner Acute Care
DX: I25.10 Atherosclerotic heart disease of native coronary artery without angina pectoris (principal); F32.A Depression, unspecified; F41.9 Anxiety disorder, unspecified; I10 Essential (primary) hypertension; R51.9 Headache, unspecified; Z79.82 Long term (current) use of aspirin; Z20.822 Contact with and (suspected) exposure to COVID-19
CPT/HCPCS: 36415; 70450; 71045; 83735; 84100; 84443; 84484; 85025; 85610; 87086; 93005; 93307; A4663; G0378; J0696

== ENCOUNTER 2024-06-30 10:07 | Emergency (ER) | payer MEDICARE, OTHER ==
[~2024-06-30] VITALS: Ht 152.4 cm; Wt 81.6 kg
[~2024-06-30 10:07] MED LIST changes: +ATOR20TA PO; -GABA100C PO; -LOSA25TA27 PO; +METO25TA6 PO; -OMEP20TA5 PO; +OMEP40CA21 PO
[2024-06-30] MEDS ORDERED: diphenhydrAMINE 50 MG/1 ML VIAL ONE (10:49)
[2024-06-30] MEDS ORDERED: KETOROLAC TROMETHAMINE 30 MG INJ ONE (10:49)
[2024-06-30] MEDS ORDERED: METOCLOPRAMIDE HCL 10 MG/2 ML VIAL ONE (10:49)
[2024-06-30 10:57] LABS: BASOPHILS % (AUTO) 0.7 % (0.0-2.0); EOSINOPHILS # (AUTO) 0.1 K/uL (0.0-0.7); EOSINOPHILS % (AUTO) 1.9 % (0.0-7.0); HEMATOCRIT 38.7 % (31.2-41.9); HEMOGLOBIN 12.9 g/dL (10.9-14.3); LYMPHOCYTES # (AUTO) 1.7 K/uL (0.8-4.8); LYMPHOCYTES % (AUTO) 28.4 % (20.5-51.5); MEAN CORPUSCULAR HEMOGLOBIN 30.3 uug (24.7-32.8); MEAN CORPUSCULAR HGB CONC 33 g/dL (32.3-35.6); MEAN CORPUSCULAR VOLUME 90.8 fL (75.5-95.3); MONOCYTES # (AUTO) 0.5 K/uL (0.1-1.30); MONOCYTES % (AUTO) 8.1 % (0.0-11.0); NEUTROPHILS # (AUTO) 3.6 K/uL (1.8-8.9); NEUTROPHILS % (AUTO) 60.9 % (38.5-71.5); PLATELET COUNT (AUTO) 182 K/uL (179-408); RED BLOOD CELL COUNT(AUTO) 4.26 MIL/uL (3.63-4.92)
[2024-06-30 11:00] LABS: DIFFERENTIAL COMMENT 1
[2024-06-30] MEDS: KETOROLAC TROMETHAMINE 30 MG INJ IVP ONE (11:00)
[2024-06-30] MEDS: diphenhydrAMINE 50 MG/1 ML VIAL IV ONE (11:00)
[2024-06-30] MEDS: METOCLOPRAMIDE HCL 10 MG/2 ML VIAL IV ONE (11:00)
[2024-06-30] MEDS: IV NS 1000 ML 1,000 ML IV ONE (11:01)
[2024-06-30 11:08] LABS: CALCIUM 9.6 mg/dL (8.5-10.1); CARBON DIOXIDE 28 mmol/L (21-32); CHLORIDE 107 mmol/L (98-107); CREATININE 0.7 mg/dL (0.6-1.3); GLUCOSE 93 mg/dL (74-106); POTASSIUM 4.1 mmol/L (3.5-5.1); SODIUM SERUM 141 mmol/L (136-145); UREA NITROGEN, BLOOD 16 mg/dL (7-18)
[2024-06-30] MEDS ORDERED: METO-295 PO (12:42)
[2024-06-30] MEDS ORDERED: DIPH25CA83 PO (12:42)
[2024-06-30] MEDS ORDERED: NAPR500T6 PO (12:42)
[2024-06-30 12:55] VITALS: BP 112/73; TEMP 98.2; O2SAT 98
== END 2024-06-30 12:56 | disposition home or self-care (01) ==
LOC: ER 10:07
DX: G43.909 Migraine, unspecified, not intractable, without status migrainosus (principal); I10 Essential (primary) hypertension; Z79.82 Long term (current) use of aspirin; Z79.899 Other long term (current) drug therapy; Z87.19 Personal history of other diseases of the digestive system; Z88.5 Allergy status to narcotic agent; Z90.49 Acquired absence of other specified parts of digestive tract; Z90.710 Acquired absence of both cervix and uterus
CPT/HCPCS: 99284; 96374; 96375; 96361; 80048; 83735; 85025; 36415; 93005; J1885; J1200; J2765; J7040; A4606; A4663